=== PATIENT | female | born 1970 | race Caucasian/White ===

== ENCOUNTER → 2021-06-19 09:17 | Outpatient (BNVA) | payer OTHER, SELFPAY | PROVIDERS: PCP Internal Medicine; Visit Provider Hospitalist | DX: Z23 Encounter for immunization (principal); J41.1 Mucopurulent chronic bronchitis; F17.210 Nicotine dependence, cigarettes, uncomplicated | CPT/HCPCS: 90471; 90732 ==

== ENCOUNTER 2021-06-24 10:31 | Outpatient (REF) | payer OTHER, SELFPAY ==
--- NOTE | 2021-06-24 10:00 | PFT_ITS ---
INDICATION: COPD. SPIROMETRY: FEV1 to FVC of 65% with an FEV1 of 1.49 L, which is 57% predicted, FVC of 2.29 L, which is 69% predicted. There was a significant response to bronchodilators noted. The patient also has a FEF 25/75 of 29% predicted suggesting significant small airways disease. Maximum voluntary ventilation 47% predicted. LUNG VOLUMES: Total lung capacity 95% predicted with residual volume 125% predicted. DIFFUSION CAPACITY: DLCO 87% predicted. COMPARISONS: None. INTERPRETATION: There is an obstructive ventilatory defect consistent with [id number]-[id number] COPD. There was a significant response to bronchodilators noted, although also very significant level of small airways disease that is present suggesting a component of asthma/COPD overlap syndrome. The patient also has a [id number] decrease in maximum voluntary ventilation secondary to deconditioning and also worsening dynamic inspiratory capacity. Lung volumes with significant air trapping due to COPD and diffusion capacity is within normal limits. Clinical correlation warranted. The patient may benefit from a pulmonary evaluation. Clinical correlation warranted. MD EDDIE Rg/ALANA / [id number]
== END 2021-06-24 10:32 | disposition home or self-care (01) ==
LOC: HO.RESP 10:31
PROVIDERS: PCP Nurse Practitioner Gerontology; Visit Provider Hospitalist
DX: R06.00 Dyspnea, unspecified (principal); J42 Unspecified chronic bronchitis
CPT/HCPCS: 94060; 94727; 94729

== ENCOUNTER → 2021-07-31 13:12 | Outpatient (BNVA) | payer OTHER, SELFPAY | PROVIDERS: PCP Nurse Practitioner Gerontology; Visit Provider Hospitalist | DX: F17.200 Nicotine dependence, unspecified, uncomplicated (principal); J44.9 Chronic obstructive pulmonary disease, unspecified; K21.9 Gastro-esophageal reflux disease without esophagitis ==

== ENCOUNTER 2021-08-21 14:17 | Outpatient (REF) | payer OTHER, SELFPAY ==
--- NOTE | ~2021-08-21 | CT_ITS ---
EXAMINATION: CT CHEST SCREENING CLINICAL INFORMATION: Nicotine dependence. COMPARISON: None TECHNIQUE: Multidetector volumetric CT imaging of the chest was performed without contrast using low-dose technique. Additional 2D coronal and sagittal reformatted images and axial 3D maximum intensity projection (MIP) images were generated on the CT workstation. This CT examination was performed using dose optimization techniques as appropriate, variously including the following: *Automated exposure control *Adjustment of mA and/or kV according to patient size (this includes techniques or standardized protocols for targeted exams where dose is matched to indication/reason for exam; i.e. extremities or head) *Use of iterative reconstruction technique DLP: 63 mGy-cm FINDINGS: LUNGS: The lungs are well expanded and clear of acute pneumonic process. There are no pulmonary nodules, mass or consolidation. MEDIASTINUM: The thyroid lobes are symmetrical and normal. Central trachea and the bronchi are widely patent. The heart size and the great vessels are normal caliber. No abnormal-sized mediastinal lymph nodes or mass is seen. Trace coronary artery calcification is seen. PLEURA: There is no pleural effusion. No pleural mass or thickening. AXILLAE: No lymphadenopathy. UPPER ABDOMEN: The visualized liver, spleen, gallbladder and pancreas appear unremarkable. OSSEOUS STRUCTURES: There is mild ventral spondylosis of the dorsal spine. No lytic or sclerotic process is seen. CT/CT lung screening IMPRESSION: Unremarkable screening CT chest. ASSESSMENT: Lung-RADS category 1: Negative RECOMMENDATION: Low-dose annual CT chest.
== END 2021-08-21 14:18 | disposition home or self-care (01) ==
LOC: HO.CT 14:17
PROVIDERS: PCP Nurse Practitioner Gerontology; Visit Provider Physician Assistant Medical
DX: Z12.2 Encounter for screening for malignant neoplasm of respiratory organs (principal); F17.210 Nicotine dependence, cigarettes, uncomplicated
CPT/HCPCS: 71271; G0296